=== PATIENT | female | born 1970 | race Two or more races ===

== ENCOUNTER 2018-01-21 17:58 | Emergency (ER) | payer BC ==
[~2018-01-21] VITALS: Ht 162.6 cm; Wt 54.4 kg
--- NOTE | 2018-01-21 18:39 | NUR ---
Dr Brewer is doing the MSE at this time.
--- NOTE | 2018-01-21 19:01 | NUR ---
Hands off report given to GE moreno for x-ray at this time.
[2018-01-21 19:02] LABS: BASOPHILS % (AUTO) 0.4 % (0.0-2.0); EOSINOPHILS # (AUTO) 0.1 K/uL (0.0-0.7); EOSINOPHILS % (AUTO) 0.8 % (0.0-7.0); HEMATOCRIT 46.6 % (31.2-41.9); HEMOGLOBIN 15.9 g/dL (10.9-14.3); LYMPHOCYTES # (AUTO) 1.8 K/uL (20.0-40.0); LYMPHOCYTES % (AUTO) 28.6 % (20.5-51.5); MEAN CORPUSCULAR HEMOGLOBIN 30.8 uug (24.7-32.8); MEAN CORPUSCULAR HGB CONC 34 g/dL (32.3-35.6); MEAN CORPUSCULAR VOLUME 90.2 fL (75.5-95.3); MONOCYTES # (AUTO) 0.6 K/uL (2.0-10.0); MONOCYTES % (AUTO) 8.6 % (0.0-11.0); NEUTROPHILS % (AUTO) 61.6 % (38.5-71.5); PLATELET COUNT (AUTO) 220 K/uL (179-408); RED BLOOD CELL COUNT(AUTO) 5.16 MIL/uL (3.63-4.92); WHITE BLOOD COUNT (AUTO) 6.4 K/uL (3.8-11.8)
[2018-01-21 19:08] LABS: CREATININE 0.7 mg/dL (0.6-1.3); POTASSIUM 4.1 mmol/L (3.5-5.1)
[2018-01-21] MEDS ORDERED: IBUPROFEN 600 MG TABLET PO ONE (19:45)
[2018-01-21] MEDS ORDERED: IBUPROFEN 600 MG TABLET ONE (19:51)
--- NOTE | 2018-01-21 20:04 | NUR ---
Gave pt RX and d/c instructions, pt verbalized understanding.
== END 2018-01-21 20:09 | disposition home or self-care (01) ==
LOC: ER 17:58
DX: S29.011A Strain of muscle and tendon of front wall of thorax, initial encounter (principal); S00.03XA Contusion of scalp, initial encounter; R55 Syncope and collapse; F17.200 Nicotine dependence, unspecified, uncomplicated; Z88.6 Allergy status to analgesic agent; Z91.018 Allergy to other foods; W01.198A Fall on same level from slipping, tripping and stumbling with subsequent striking against other object, initial encounter; Y93.89 Activity, other specified; Y92.89 Other specified places as the place of occurrence of the external cause; Y99.8 Other external cause status
CPT/HCPCS: 36415; 70030-TC; 71046; 85025; 85730; 93005; A4663